=== PATIENT | female | born 1970 | race Caucasian/White ===

== ENCOUNTER 2024-02-19 07:25 | Outpatient (OUT) | payer BC, SELFPAY ==
--- NOTE | 2024-02-19 07:34 | MM_ITS ---
Patient Name: MENDEZ GONZALEZ MR#: [id number] : 1970 Exam Date: 02/19/2024 Ordering Doctor: DR Michael Nelson . RADIOLOGY REPORT PROCEDURE: MM TOMOSYNTHESIS SCREENING BI COMPARISON: MG MAMM SCREEN ADELE W CAD, 07/09/2017. MG MAMM SCREEN ADELE W CAD, 11/16/2020. INDICATIONS: Screening Calculator Name NCI Breast Cancer Risk Assessment Tool 5 Year Breast Cancer Risk 1.00% Lifetime Breast Cancer Risk 7.70% Personal Breast Cancer No Personal Ovarian Cancer No Treatments None Family Cancers Mother with cervical cancer at age ~20; Mother with lung/liver cancer at age 64. LOCATION: [facility] BREAST COMPOSITION: There are scattered areas of fibroglandular density. FINDINGS: DIAGNOSTIC CATEGORY 2--BENIGN FINDING. NO CHANGE FROM COMPARISON. Scattered benign-appearing calcifications are present. Scattered benign-appearing nodules are present. RIGHT BREAST: No significant suspicious finding. LEFT BREAST: No significant suspicious finding. RECOMMENDATIONS: ROUTINE MAMMOGRAM AND CLINICAL EVALUATION IN 12 MONTHS. PLEASE NOTE: A NORMAL MAMMOGRAM DOES NOT EXCLUDE THE POSSIBILITY OF BREAST CANCER. A CLINICALLY SUSPICIOUS PALPABLE LUMP SHOULD BE BIOPSIED. Dictated by: Tim Austin MD on 02/19/2024 at 10:04 Approved by: Tim Austin MD on 02/19/2024 at 10:06
[2024-02-19 08:37] LABS: Basophils Percent Auto 0.6 % (0.2-2.0); Eosinophils Absolute Auto 0.1 10^3/uL (0.0-0.7); Eosinophils Percent Auto 1.3 % (0.9-7.0); Hematocrit 38.1 % (36.0-48.0); Hemoglobin 12.5 g/dL (12.0-16.0); Immature Granulocytes Abs Auto 0.01 10^3/uL (0.00-0.03); Immature Granulocytes Pct Auto 0.2 % (0.0-0.5); Lymphocytes Absolute Auto 1.9 10^3/uL (1.2-3.8); Lymphocytes Percent Auto 34.3 % (20.5-60.0); Mean Corpuscular HGB Conc 32.8 g/dL (29.9-35.2); Mean Corpuscular Hemoglobin 29.6 pg (26.7-34.0); Mean Corpuscular Volume 90.3 fL (81.0-99.0); Mean Platelet Volume 11.7 fL (9.5-13.5); Monocytes Absolute Auto 0.4 10^3/uL (0.3-0.8); Monocytes Percent Auto 7.6 % (1.7-12.0); Platelet Count 234 10^3/uL (150-450); Red Blood Count 4.22 10^6/uL (4.20-5.40); Red Cell Distribution Width 13.3 % (11.0-15.0); White Blood Count 5.4 10^3/uL (4.0-11.0)
[2024-02-19 09:14] LABS: Estimated Average Glucose 108 mg/dL; Glycohemoglobin A1C 5.4 % (4.5-6.2)
[2024-02-19 09:50] LABS: Alanine Aminotransferase 20 U/L (14-59); Albumin Globulin Ratio 0.9; Albumin Level 3.5 g/dL (3.4-5.0); Alkaline Phosphatase 85 U/L (46-116); Aspartate Amino Transferase 17 U/L (15-37); BUN Creatinine Ratio 22.7; Bilirubin Total 0.5 mg/dL (0.2-1.0); Calcium 9.3 mg/dL (8.5-10.1); Carbon Dioxide 28.7 mmol/L (21.0-32.0); Chloride 105 mmol/L (98-107); Chol HDL Ratio 2.4; Cholesterol 212 mg/dL (<=200); Estimated GFR (African America >60 (>=60); Estimated GFR (Non-African Ame >60 (>=60); Free T3 2.79 pg/mL (2.18-3.98); Globulin 3.9 g/dL; Glucose 95 mg/dL (74-106); HDL Cholesterol 87 mg/dL (40-60); Potassium 3.7 mmol/L (3.5-5.1); Sodium 142 mmol/L (136-145); Thyroid Stimulating Hormone 3.871 uIU/mL (0.358-3.740); Total Protein 7.4 g/dL (6.4-8.2); Triglycerides 66 mg/dL (<=150); VLDL CHOLESTEROL 13.2 mg/dL
[2024-02-20 08:11] LABS: Insulin 10.4 uIU/mL (2.6-24.9)
== END 2024-02-19 07:26 | disposition home or self-care (01) ==
LOC: MAMMO 07:30
PROVIDERS: PCP Family Medicine; Visit Provider Family Medicine
DX: Z00.00 Encounter for general adult medical examination without abnormal findings (principal); Z80.8 Family history of malignant neoplasm of other organs or systems; Z80.1 Family history of malignant neoplasm of trachea, bronchus and lung
CPT/HCPCS: 36415; 77063; 77067; 80053; 80061; 83036; 83525; 84436; 84443; 84481; 85025

== ENCOUNTER 2025-04-16 06:57 | Outpatient (OUT) | payer BC, SELFPAY ==
--- OUTSIDE RECORDS SUMMARY | 2025-04-16 06:59 | XMS_ITS | CCD ---
Author Organization [facility] Care Team Providers Care Funeral Assistant Name Role Phone DR GENO FISHER Primary Care Unavailable DR GENO FISHER Attending Unavailable DR GENO FISHER Admitting Unavailable Unavailable Primary Care Provider UnavailGINA Jackman Attending Unavailable GINA PONCE Attending Unavailable GINA PONCE Attending Unavailable Allergies Allergy Classification Reported Allergen(s) Allergy Type Date of Onset Reaction(s) Facility (1 source) Latex Drug allergy (disorder) [facility] Medications Current Medications Medication Drug Class(es) Dates Sig (Normalized) Sig (Original) bisoprolol fumarate 5 mg / hydroCHLOROthiazide 6.25 mg oral tablet (5 sources) Thiazide Diuretic, beta-Adrenergic [place] Start: 4 take 1 tablet by mouth once daily bisoprolol-hydroCH LOROthiazide (Ziac) 5-6.25 MG tablet Take 1 tablet by mouth Daily 04/22/2024 Active diphenhydrAMINE hydrochloride 25 mg oral tablet (5 sources) Histamine-1 Receptor Antagonist diphenhydrAMINE (Sominex) 25 MG tablet Take 25 mg by mouth as needed at bedtime for sleep Active estradiol 1 mg oral tablet (5 sources) Estrogen Start: 4 take 1 tablet by mouth once daily estradiol (Estrace) 1 MG tablet Take 1 mg by mouth Daily 04/27/2024 Active Multiple Vitamin (MULTI VITAMIN PO) (5 sources) take 1 dose by mouth once daily Multiple Vitamin (MULTI VITAMIN PO) Take 1 each by mouth Daily Active pantoprazole 40 mg delayed release oral tablet (5 sources) Proton Pump Inhibitor Start: 4 take 1 tablet by mouth before mealtime Protonix 40 MG EC tablet Take 40 mg by mouth in the morning. Take before meals. 02/12/2024 Active phentermine hydrochloride 37.5 mg oral tablet (6 sources) Sympathomimetic Amine Anorectic Start: 4 End: 5 take 1 tablet by mouth before mealtime phentermine (Adipex-P) 37.5 MG tablet Indications: Encounter for weight management Take 1 tablet (37.5 mg) by mouth in the morning. Take before meals. 90 tablet 09/16/2024 12/15/2024 Active saccharomyces boulardii 250 mg oral capsule (5 sources) take 1 capsule by mouth in the morning saccharomyces boulardii (Florastor) 250 MG capsule Take 250 mg by mouth in the morning and 250 mg before bedtime. Active turmeric extract 500 mg oral capsule (5 sources) take 1 capsule by mouth once daily Turmeric 500 MG capsule Take 1 each by mouth Daily Active valACYclovir 1000 mg oral tablet (5 sources) Herpesvirus Nucleoside Analog DNA Polymerase Inhibitor, Herpes Simplex Virus Nucleoside Analog DNA Polymerase Inhibitor, Herpes Zoster Virus Nucleoside Analog DNA Polymerase Inhibitor valACYclovir (Valtrex) 1 g tablet Take 500 mg by mouth 1 (one) time each day at the same time Active Problems Problem Classification Problem Date Documented Da te Episodic/Chronic Administrative/social admission (6 sources) Patient encounter status; Translations: [Persons encountering health services in other specified circumstances] Onset: 09-16-2024 09-16-2024 Episodic Vital Signs Date Time Vital Sign Value Performing Clinician Kaylene puentes 09-16-2024 09:04-0500 Body height 162.6 cm Gina REED Work Phone: [facility] 09-16-2024 09:04-0500 Body mass index (BMI) [Ratio] 32.44 kg/m2 Gina REED Work Phone: [facility] 09-16-2024 09:04-0500 Body weight 85.73 kg Gina REED Work Phone: [facility] 09-16-2024 09:04-0500 Diastolic blood pressure 80 mm[Hg] Gina REED Work Phone: [facility] 09-16-2024 09:04-0500 Systolic blood pressure 124 mm[Hg] Gina REED Work Phone: [facility] 06-17-2024 15:09-0400 Body mass index (BMI) [Ratio] 34.91 kg/m2 Gina REED Work Phone: [facility] 06-17-2024 15:040 Body weight 92.26 kg Gina REED Work Phone: [facility] 06-17-2024 15:09-040 Diastolic blood pressure 70 mm[Hg] Gina REED Work Phone: [facility] 06-17-2024 15:040 Systolic blood pressure 120 mm[Hg] Gina Ponce PA Work Phone: [facility] Healthcare Encounters Encounter Date Encounter Type Care Provider Facility Start: 09-16-2024 End: 09-16-2024 Online digital e/m svc est pt <7 d 5-10 minutes Gina REED Work Phone: [facility] Comment on above: Encounter for weight management Start: 06-17-2024 End: 06-17-2024 ambulatory GINA PONCE Not Available Start: 06-17-2024 End: 06-17-2024 Office outpatient visit 15 minutes Gina ERED Work Phone: [facility] Comment on above: Encounter for weight management Start: 06-17-2024 End: 06-17-2024 Bamboo flowsheet Gina REED Work Phone: [facility] Start: 06-17-2024 End: 06-17-2024 Bamboo flowsheet Gina REED Work Phone: [facility] Start: 05-14-2024 End: 05-14-2024 ambulatory GINA PONCE Not Available Start: 04-29-2024 End: 04-29-2024 ambulatory GINA PONCE Not Available Start: 12-01-[address] GENO FISHER Facility : Plan of Treatment Date Care Activity Detail Author Start: 09-16-2024 End: 09-16-2024 Patient encounter procedure 09/16/2024 8:30 AM EST Office Visit [facility] [address] [place] [id number] Gina Ponce PA [address] [place] [address] [facility] Payers Date Payer Category Payer [facility] BC[employer] [id number] 2021 Unknown BCBS BCBS xxxxxx [id number] 2021-Present [phone] [id number] [place], [place] [id number] 2021 Unknown [id number] 1970 Unknown [id number] 1970 Unknown [id number] 1970 Unknown [id number] 1970 Unknown [id number] 1959 Self-pay [id number] Social History Date Type Detail Facility Tobacco smoking stat [facility] Tobacco smoking consumption unknown [facility] Start: 1970 Sex assigned at Not on file [facility] Gender identity Not on file [facility] History of Present illness Narrative 09-16-2024 DEREK Garcia - 09/16/2024 8:30 AM EST Note Date & Type Note Facility 09-16-2024 History of Presen t illness Narrative Reason for Appointment: Patient ID: Whitney Reveles is a 54 y.o. female who presents for No chief complaint on file. Patient presents today via telephone call for a telehealth appointment. Patients Phone #: [phone] (mobile) Current Medications: has a current medication list which includes the following prescription(s): bisoprolol-hydrochlorothiazide, diphenhydramine, estradiol, multiple vitamin, phentermine, protonix, saccharomyces boulardii, turmeric, and valacyclovir. Medical History: Active Ambulatory Problems Diagnosis Date Noted No Active Ambulatory Problems Resolved Ambulatory Problems Diagnosis Date Noted No Resolved Ambulatory Problems No Additional Past Medical History No family history on file. Social History Tobacco Use Smoking status: Not on file Smokeless tobacco: Not on file Substance Use Topics Alcohol use: Not on file Drug use: Not on file Past Surgical History: Procedure Laterality Date HYSTERECTOMY 2013 No Known Allergies Vitals: Estimated body mass index is 34.91 kg/m as calculated from the following: Height as of 04/29/24: 5' 4 . Weight as of 06/17/24: 203 lb 6.4 oz. BP: No LMP recorded. Patient is premenopausal. Assessment/Plan Provider called patient and discussed weight management. Patient is currently down 14 lbs. Patient will have a 3 month prescription ready for pickup at the office. Discussed follow-up plan. Today's telehealth visit consisted of spending 5 minutes talking to patient on the phone. Documented by Ines Givens LPN on behalf of: DEREK Garcia documented in this encounter [facility] History of Present illness Narrative 06-17-2024 DEREK Garcia - 06/17/2024 2:50 PM EDT Note Date & Type Note Facility 06-17-2024 History of Presen t illness Narrative Reason for Appointment: Patient ID: Whitney Reveles is a 53 y.o. female who presents for encounter for weight management Patient presents today for a weight management consultation. Patient has been prescribed Adipex and she is here for her 2nd prescription. Today's Vitals: Estimated body mass index is 34.91 kg/m as calculated from the following: Height as of 04/29/24: 5' 4 . Weight as of this encounter: 203 lb 6.4 oz. Previous Weight/BMI: Wt Readings from Last 2 Encounters: 06/17/24 203 lb 6.4 oz 04/29/24 204 lb BMI Readings from Last 2 Encounters: 06/17/24 34.91 kg/m 04/29/24 35.02 kg/m Allergies as of 06/17/2024 (No Known Allergies) History reviewed. No pertinent past medical history. Past Surgical History: Procedure Laterality Date HYSTERECTOMY 2013 Assessment/Plan Encounter Diagnosis Name Primary? Encounter for weight management Adipex: Patient presents today for 2nd Adipex prescription. Patients weight and blood pressure has been captured and discussed with the patient. I have discussed/reiterated the importance of keeping a food journal, proper nutrition/diet, and exercise regimen while taking Adipex. Patient verbalized understanding and was given a printed prescription signed by provider to take to their local pharmacy. We discussed effects of adipex, patient states she will continue to see if there is better results in next several months. Wegovy discussed but pt wishes to continue with adipex Follow Up: Patient is to return to the office in 3 month for further evaluation to assess patient progress. Weight and blood pressure will need to be obtained in order for patient to receive next prescription. Documented by: Fiona oY LPN on behalf of DREEK Garcia documented in this encounter [facility] Evaluation note Note Date & Type Note Facility Evaluation note Diagnosis Encounter for weight management documented in this encounter [facility] Evaluation note Note Date & Type Note Facility Evaluation note Diagnosis Encounter for weight management documented in this encounter [facility] Summary Purpose Family History No Family History Records FoundNo Family History Records Found Advance Directives No Advanced Directives Records FoundNo Advanced Directives Records Found Additional Source Comments INFORMATION SOURCE (unrecogn ized section and content) DATE CREATED AUTHOR 11/18/2021 [facility] DATE CREATED AUTHOR AUTHOR'S ORGANIZ ATION 09/19/2024 [facility] EPIC Reason for Visit (unrecogniz ed section and content) Reason Comments Weight Management Reason Comments encounter for weight management FOR RECORDS PERTAINING TO PATIENTS WHO ARE OR HAVE BEEN ENROLLED IN A CHEMICAL DEPENDENCY/SUBSTANCEABUSE PROGRAM, SOME INFORMATION MAY BE OMITTED. This clinical summary was aggregated from multiple sources. Caution should be exercised in using it in the provision of clinical care. This summary normalizes information from multiple sources, and as a consequence, information in this document may materially change the coding, format and clinical context of patient data. In addition, data may be omitted in some cases. CLINICAL DECISIONS SHOULD BE BASED ON THE PRIMARY CLINICAL RECORDS. [facility] [facility]. provides no warranty or guarantee of the accuracy or completeness of information in this document.
--- NOTE | 2025-04-16 07:22 | MM_ITS ---
Patient Name: MENDEZ GONZALEZ MR#: [id number] : 1970 Exam Date: 04/16/2025 Ordering Doctor: DR GENO FISHER . RADIOLOGY REPORT PROCEDURE: MM TOMOSYNTHESIS SCREENING BI COMPARISON: MM TOMOSYNTHESIS SCREENING BI, 02/19/2024. MG MAMM SCREEN ADELE W CAD, 11/16/2020. MG MAMM SCREEN ADELE W CAD, 07/09/2017. INDICATIONS: Screening Calculator Name NCI Breast Cancer Risk Assessment Tool 5 Year Breast Cancer Risk 1.00% Lifetime Breast Cancer Risk 7.50% Personal Breast Cancer No Personal Ovarian Cancer No Treatments None Family Cancers Father with prostate cancer at age 70; Mother with cervical cancer at age ~20; Mother with lung/liver cancer at age 64. LOCATION: [facility] BREAST COMPOSITION: There are scattered areas of fibroglandular density. FINDINGS: RIGHT BREAST: No significant suspicious finding. Similar focal asymmetries are present. LEFT BREAST: No significant suspicious finding. Similar focal asymmetries are present. DIAGNOSTIC CATEGORY 2--BENIGN FINDING: RECOMMENDATIONS: ROUTINE MAMMOGRAM AND CLINICAL EVALUATION IN 12 MONTHS. PLEASE NOTE: A NORMAL MAMMOGRAM DOES NOT EXCLUDE THE POSSIBILITY OF BREAST CANCER. A CLINICALLY SUSPICIOUS PALPABLE LUMP SHOULD BE BIOPSIED. Dictated by: Isai Garcia MD on 04/16/2025 at 11:43 Approved by: Isai Garcia MD on 04/16/2025 at 11:45
[2025-04-16 07:57] LABS: Hematocrit 37.4 % (36.0-48.0); Hemoglobin 12.4 g/dL (12.0-16.0); Immature Granulocytes Abs Auto 0.02 10^3/uL (0.00-0.03); Immature Granulocytes Pct Auto 0.3 % (0.0-0.5); Lymphocytes Absolute Auto 2.0 10^3/uL (1.2-3.8); Mean Corpuscular HGB Conc 33.2 g/dL (29.9-35.2); Mean Corpuscular Hemoglobin 30.3 pg (26.7-34.0); Mean Corpuscular Volume 91.4 fL (81.0-99.0); Platelet Count 216 10^3/uL (150-450); Red Blood Count 4.09 10^6/uL (4.20-5.40); White Blood Count 6.2 10^3/uL (4.0-11.0)
[2025-04-16 08:44] LABS: Alanine Aminotransferase 19 U/L (14-59); Albumin Globulin Ratio 1.1; Albumin Level 3.4 g/dL (3.4-5.0); Alkaline Phosphatase 66 U/L (46-116); Anion Gap 12.0; Aspartate Amino Transferase 12 U/L (15-37); Blood Urea Nitrogen 16.0 mg/dL (7.0-18.0); Calcium 8.8 mg/dL (8.5-10.1); Carbon Dioxide 29.0 mmol/L (21.0-32.0); Chloride 106 mmol/L (98-107); Cholesterol 196 mg/dL (<=200); Estimated GFR (African America >60 (>=60 mL/min/1.73m^2); Estimated GFR (Non-African Ame >60 (>=60 mL/min/1.73m^2); Free T3 2.43 pg/mL (2.18-3.98); Globulin 3.2 g/dL; Glucose 93 mg/dL (74-106); HDL Cholesterol 79 mg/dL (40-60); Potassium 4.0 mmol/L (3.5-5.1); Sodium 143 mmol/L (136-145); Thyroid Stimulating Hormone 3.259 uIU/mL (0.358-3.740); Total Protein 6.6 g/dL (6.4-8.2); Triglycerides 71 mg/dL (<=150); VLDL CHOLESTEROL 14.2 mg/dL
== END 2025-04-16 06:58 | disposition home or self-care (01) ==
LOC: MAMMO 06:58
PROVIDERS: PCP Family Medicine; Visit Provider Family Medicine
DX: Z00.00 Encounter for general adult medical examination without abnormal findings (principal); Z80.42 Family history of malignant neoplasm of prostate; Z80.1 Family history of malignant neoplasm of trachea, bronchus and lung; Z80.8 Family history of malignant neoplasm of other organs or systems
CPT/HCPCS: 36415; 77063; 77067; 80053; 80061; 83036; 83525; 84436; 84443; 84481; 85025